=== PATIENT | male | born 1995 | race Caucasian/White ===

== ENCOUNTER 2019-05-30 18:50 | Emergency (ER) | payer SELFPAY ==
[~2019-05-30] VITALS: Ht 182.9 cm; Wt 73.6 kg
[2019-05-30] MEDS ORDERED: CLINDAMYCIN 300MG PO (19:44)
[2019-05-30 19:55] VITALS: BP 111/61
== END 2019-05-30 19:55 | disposition home or self-care (01) ==
LOC: ED 18:50
DX: K04.7 Periapical abscess without sinus (principal); F17.210 Nicotine dependence, cigarettes, uncomplicated; Z88.0 Allergy status to penicillin; Z88.8 Allergy status to other drugs, medicaments and biological substances